=== PATIENT | male | born 1980 | race Caucasian/White ===

== ENCOUNTER 2016-10-29 10:25 | Emergency (ER) | payer SELFPAY ==
[~2016-10-29] VITALS: Ht 188 cm; Wt 116.8 kg
[2016-10-29 10:37] VITALS: BP 171/121; PULSE 95; RESP 22; O2SAT 96
--- NOTE | 2016-10-29 10:58 | ED.REPORT ---
HPI-Extremity Problem Lower Date of Service Oct 29, 2016 ED Provider: Jacob Yoder MD Nursing Notes Stated Complaint: KNEE PAIN Chief Complaint: Extremity Trauma Allergies: Coded Allergies: No Known Allergies (Unverified , 10/29/16) General Time Seen by MD: 10:57 Past Medical History Past Medical History Reports: Asthma Past Surgical History n/a Review of Systems Review of Systems Note: hyperkinetic per mom Basic Review of Systems Eyes: Vision NL, No discharge ENT: Hearing NL, No pain, No pharyngeal pain Respiratory: No shortness of breath Cardiovascular: No chest pain, No dyspnea on exertion GI: No abdominal pain, No anorexia, No nausea, No vomiting : No dysuria, No frequency Hematologic: No bleeding, No bruising Endocrine: No cold intolerance, No heat intolerance, No weight gain, No weight loss Allergy / Immune: No allergy Psychiatric: Normal thought content Constitutional: Reports: Fever Musculoskeletal: Denies: Neck pain Skin: Denies Bruising, Denies Rash Neurologic: Denies: Confusion, Headache, Seizure Complete sys rev & neg: except as marked. Eyes: Denies: Discharge bilateral Ears / Nose / Throat: Denies: Ear drainage bilateral Respiratory: Reports: Non-productive cough, Wheezing Cardiovascular: Denies: Chest pain GI: Denies: Abdominal pain Hematologic: Denies Bruising, Denies Petechiae Allergy / Immune: Reports: Rhinorrhea, Sneezing, Denies: Allergic reaction, Anaphylaxis, Hives Physical Exam Initial Vital Signs Vital Signs (First) Date Time Temp Pulse Resp B/P Pulse Ox O2 Delivery O2 Flow Rate FiO2 10/29/16 10:37 35.9 95 22 171/121 96 Room Air Initial VS: Reviewed General/Constitutional: Well-developed, Well-nourished Head / Eyes: Atraumatic, Normocephalic, PERRL ENT: Mucous membranes moist, Conjunctiva normal, No scleral icterus Neck: Supple, Non-tender, Full range of motion Respiratory: Breath sounds normal, Clear to auscultation, No respiratory distress Cardiovascular: Regular rate & rhythm, Heart sounds normal, Intact distal pulses Abdomen / GI: Soft, Non-tender, No guarding, No rebound, No distention Back: No CVA tenderness Lymphatic: No lymphadenopathy Upper Extremities: Vascular intact, Neuro intact, No swelling, No tenderness Skin: Warm, Dry, No cyanosis Neurologic: Alert, Oriented, Nonfocal Psychiatric: Mood/affect normal, Behavior normal, Normal thought content Discharge & Departure Referrals: NOPCP (PCP) Jacob Yoder MD Oct 29, 2016 10:58 Sherrie Izaguirre Oct 29, 2016 11:55
[2016-10-29] MEDS ORDERED: HYDROcodone-APAP 5-325 mg Tablet PO ONE (11:25)
--- NOTE | 2016-10-29 12:22 | ED.REPORT ---
HPI-Extremity Problem Lower Date of Service Oct 29, 2016 ED Provider: Sherrie Izaguirre Nursing Notes Stated Complaint: KNEE PAIN Chief Complaint: Extremity Trauma Nursing Notes Reviewed: Yes Allergies: Coded Allergies: No Known Allergies (Unverified , 10/29/16) Scheduled Ondansetron ODT (Ondansetron ODT) 4 Mg Tab.rapdis 4 MG PO TID Prednisone (PredniSONE Dose Delvin) 10 Mg Tab.ds.pk 1 TABLET PO UD TAKE DIRECTED ON PACKAGE OR BY PHYSICIAN Scheduled PRN Hydrocodone-Acetaminophen 5-325 mg (Hydrocodone-Acetaminophen 5-325 mg) 1 Each Tablet 1 TABLET PO Q4H PRN PRN For Pain General Time Seen by MD: 11:06 Chief Complaint Knee injury left Left knee pain. Hx of RA with recent flare. Saw pcp who did a corticosteroid joint injection on 10/26/16. Now with extreme pain, swelling, calf pain, and knee hot to the touch. Hx Obtained From: Patient Arrived By: Walk-in Onset Occurred: Yesterday Symptom Duration: Since onset Caused by: Body motion (spontaneous onset) Context: Occurred at: Home injury Location: : Knee left Quality: Aching, Heaviness Severity: Current: Moderate Severity: Maximum: Severe Associated with: Reports: Swelling, Denies: "Pop" felt or heard, Bleeding, Chest pain, Fever, Nausea, Neck pain, Unable to bear weight, Unable to move joint, Unable to walk, Vomiting, Weakness , Wound discharge Pertinent Negative: Pt denies other symptoms Exacerbated by: Range of motion, Movement Relieved by: Rest Immunizations: All up to date Recent Healthcare: Recent doctor visit Similar Sx Previous: No Risk-Extremity Prob Lower Well's Criteria for DVT Immob lower ext (1), Local tend d-vein sys (1), Calf swelling >3cm (1), Collat superfic veins (1), Altern dx DVT likely (-2) Well's DVT Score: 1-2 pts (mod risk 33%) Past Medical History Past Medical History RA Reports: Hyperlipidemia, Hypertension Smoking History Current Every Day Smoker (chews tobacco) Social History Alcohol Use: "Social" Drug Use: Denies drug use Other Social History: Smokeless tobacco Ambulatory Status Independent Review of Systems Basic Review of Systems Eyes: Vision NL, No discharge ENT: Hearing NL, No pain, No nasal congestion, No pharyngeal pain Respiratory: No shortness of breath, No cough, No wheeze Cardiovascular: No chest pain, No dyspnea on exertion GI: No nausea, No vomiting Hematologic: No bruising Endocrine: No cold intolerance, No heat intolerance, No weight gain, No weight loss Allergy / Immune: No allergy Psychiatric: Normal thought content Constitutional: Denies: Chills, Fever Musculoskeletal: Reports: Extremity pain, Extremity swelling, Joint pain, Joint swelling Skin: Denies Bruising, Denies Rash Neurologic: Denies: Confusion, Headache Complete sys rev & neg: except as marked. Physical Exam Initial Vital Signs Vital Signs (First) Date Time Temp Pulse Resp B/P Pulse Ox O2 Delivery O2 Flow Rate FiO2 10/29/16 10:37 35.9 95 22 171/121 96 Room Air Initial VS: Vital signs abnormal (hypertensive, normal upon recheck) General/Constitutional: Well-developed, Well-nourished Head / Eyes: Atraumatic, Normocephalic, PERRL ENT: Mucous membranes moist, Conjunctiva normal, No scleral icterus Neck: Full range of motion Respiratory: No respiratory distress Cardiovascular: Intact distal pulses Lymphatic: No lymphadenopathy Upper Extremities: Vascular intact, Neuro intact, No swelling, No tenderness Skin: Warm, Dry, No cyanosis Neurologic: Alert, Oriented, Nonfocal Psychiatric: Mood/affect normal, Behavior normal, Normal thought content Lower Extremity / Pelvis / MS: Atraumatic, No deformity Left Knee: Positive: Erythema present, Joint effusion present, ROM painful, ROM reduced, Swelling present... (Mild), Tenderness present... (Severe), Warmth present, Negative: Neuro deficit present, Pulse popliteal decreased, Pulses distal decreased Joint above & below: affected area is NL. Interpretation & Diagnostics Interpretation & Diagnostics: Venous doppler negative for DVT or Bakers cyst Lab Results Interpretation Result Diagram: 10/29/16 1250 10/29/16 1250 Test 10/29/16 12:50 10/29/16 13:15 White Blood Count 9.8th/mm3 (3.8-10.1) Red Blood Count 4.75mil/mm3 (4.40-5.80) Hemoglobin 14.7g/dL (13.8-17.2) Hematocrit 42.6% (41.0-50.0) Mean Corpuscular Volume 89.7fL (81-100) Mean Corpuscular Hemoglobin 30.9pg (27.0-35.0) Mean Corpuscular Hemoglobin Concent 34.5% (32.0-37.0) Red Cell Distribution Width 12.8% (12.3-15.4) Platelet Count 253bil/L (150-400) Neutrophils (%) (Auto) 57.6% (40-74) Lymphocytes (%) (Auto) 24.3% (14-46) Monocytes (%) (Auto) 15.3% (4-12) Eosinophils (%) (Auto) 1.6% (0-5) Basophils (%) (Auto) 0.4% (0-3) Sodium Level 137mEq/L (134-144) Potassium Level 3.8mEq/L (3.5-5.2) Chloride Level 100mEq/L (97-108) Carbon Dioxide Level 25mmol/L (18-29) Blood Urea Nitrogen 13mg/dL (6-20) Creatinine 0.77mg/dL (0.76-1.27) Estimat Glomerular Filtration Rate 122mL/min (>59) Glucose Level 82mg/dL (60-99) Calcium Level 8.2mg/dL (8.5-10.1) Body Fluid Source Synovial fluid Body Fluid Color Straw (Clear) Body Fluid Appearance Hazy Body Fluid WBC 683/mm3 Body Fluid RBC 30/mm3 Body Fluid Polynuclear WBCs 22% Body Fluid Lymphocytes 18% Body Fluid Monocytes 60% Body Fluid Eosinophils 0% Body Fluid Basophils 0% Lab values outside NL range: no clinical significance. Lab Results Interpretation: synovial fluid analysis reveals no pathogens and normal cell count. Procedures Arthrocentesis Aspiration Performed by: Allied health pract Consent / Setup / Site Prep: Consent from patient, Time-out performed, Hand hygiene observed, Stand sterile technique, Standard surgical scrub Indication: Septic joint evaluation, Culture and sensitivity Skin Preparation Agent: Hibiclens - Chlorhexidine Local Anesthesia: Lidocaine 1%, 2cc, 27g needle Procedural Sedation/Analgesia: Analgesia: Dilaudid Joint Aspirated: Knee left Aspiration Needle: 20g Amount Aspirated: 6 ml Fluid Appearance: Serous, Straw colored Post-Procedure / Complications: Dressing placed, No complications Re-Eval/Medical Decision Med Decision/Clinical Course Normal labs, x-ray, usd, and synovial fluid analysis. Will treat with prednisone taper and for pain control for RA flare. 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 This is not a septic joint. This is a rheumatoid arthritis flare. I am going to give you a prednisone taper and pain medication to help you with this. I am also giving you a referral to a local resaw operator. Please follow -up with your regular doctor or return to the ER for any other concerns. Referrals: NOPCP (PCP) Jac Mariano MD EDSupervising Provider for APC: Jacob Yoder MD Attending Statement Attending attestation: I saw this patient in conjunction with the above named APC. Patient discussed in detail. I agree with the workup, evaluation, treatment and disposition. Sherrie Cespedes MD Oct 29, 2016 12:22 Jacob Yoder MD Oct 29, 2016 14:17
--- NOTE | 2016-10-29 12:36 | DRSVH ---
PROCEDURE: US VEINOUS LEG DUPLEX UNILATERAL, LEFT INDICATIONS: calf pain, swelling, r/o dvt TECHNIQUE: Real-time imaging, as well as color and pulse Doppler interrogation, were performed of the lower extr emity deep veins from the inguinal ligament to the popliteal fossa. COMPARISON: None. FINDINGS: Distal femoral vein was suboptimally sonographically visualized. Overall, the deep veins a re normally compressible, and free of intraluminal thrombus. Color and pulse Doppler demonstrate nor mal phasic intraluminal flow. There is normal augmentation response to distal compression maneuver. IMPRESSION: No evidence of deep venous thrombosis Dictated by: Delonte Jorge M.D. on 10/29/2016 at 12:32 Approved by: Delonte Jorge M.D. on 10/29/2016 at 12:35
[2016-10-29] MEDS: HYDROmorphone 0.5 mg/0.5 mL iSecure Syringe IVPUSH PRN ×2 (12:54→14:48)
[2016-10-29 13:07] VITALS: BP 130/82; PULSE 84; RESP 15; O2SAT 95
[2016-10-29 13:08] LABS: BASOPHILS % (AUTO) 0.4 % (0-3); EOSINOPHILS % (AUTO) 1.6 % (0-5); MONOCYTES % (AUTO) 15.3 % (4-12); Mean Corpuscular Hemoglobin 30.9 pg (27.0-35.0); Mean Corpuscular Volume 89.7 fL (81-100); NEUTROPHILS % (AUTO) 57.6 % (40-74); Platelet Count 253 bil/L (150-400)
--- NOTE | 2016-10-29 13:17 | DRSVH ---
PROCEDURE: X-RAY LEFT KNEE, ONE OR TWO VIEWS ([id number]) INDICATIONS: pain, swelling TECHNIQUE: 2 views of the knee were acquired. COMPARISON: None. FINDINGS: Bones: No fractures or dislocations. No suspicious bony lesions. Mild medial joint space narrowing Soft tissues: Possible small joint effusion. No suspicious soft tissue calcifications. IMPRESSION: Possible small joint effusion. Mild degenerative joint disease. Dictated by: Delonte Jorge M.D. on 10/29/2016 at 13:16 Approved by: Delonte Jorge M.D. on 10/29/2016 at 13:16
[2016-10-29 15:04] LABS: BFWBC 683 /mm3; MONOCYTES,BODY FLUID 60 %; OTHER CELLS,BODY FLUID 0
[2016-10-29] MEDS ORDERED: HYDR-4003 PO (15:18)
[2016-10-29] MEDS ORDERED: ONDA4TAB12 PO (15:18)
[2016-10-29] MEDS ORDERED: PRED10TA21 PO (15:18)
[2016-10-29 16:02] VITALS: BP 130/82; PULSE 84; RESP 15; O2SAT 95
== END 2016-10-29 15:18 | disposition home or self-care (01) ==
LOC: SED 10:25
DX: M06.062 Rheumatoid arthritis without rheumatoid factor, left knee (principal); E78.5 Hyperlipidemia, unspecified; I10 Essential (primary) hypertension; F17.200 Nicotine dependence, unspecified, uncomplicated; Z98.890 Other specified postprocedural states
CPT/HCPCS: 20610; 36415; 73560; 80048; 85025; 87070; 87205; 89051; 93970; 96374; 96376; 99285; J1170